=== PATIENT | male | born 1955 | race Caucasian/White ===

== ENCOUNTER 2017-04-10 20:24 | Observation (INO) ==
[2017-04-10] MEDS ORDERED: 0.9 % Sodium Chloride 1,000 ML IVC ONE (21:18)
[2017-04-10] MEDS ORDERED: levoFLOXacin 500 MG TABLET PO ONE (21:18)
[2017-04-10] MEDS ORDERED: methylPREDNISolone 125 MG/2 ML VIAL IVP ONE (21:18)
[2017-04-10] MEDS ORDERED: Ipratropium/Albuterol Neb 3 ML IH ONE (21:18)
[2017-04-10] MEDS ORDERED: Dexamethasone 4 MG/ML VIAL PO ONE (21:20)
[2017-04-10] MEDS: diazePAM 5 MG TABLET PO ONE ×2 (21:30)
[2017-04-10 21:36] LABS: Hemoglobin 14.6 g/dL (12.9-16.9); Red Cell Distribution Width 14.2 % (11.5-14.5)
[2017-04-10 21:37] LABS: Basophils % 0.2 %; Eosinophils % 0.5 %; Hematocrit 43.2 % (37.5-50.1); Immature Granulocytes % 0.3 % (0-4); Immature Platelets 4.5 % (1.1-6.1); Lymphocytes # 0.2 K/mcL (0.6-4.6); Lymphocytes % 3.5 %; Mean Corpuscular HGB Conc 33.8 g/dL (31.6-35.5); Mean Corpuscular Hemoglobin 32.8 pg (28.0-33.3); Mean Corpuscular Volume 97.1 fL (83.0-100.0); Monocytes # 0.8 K/mcL (0.0-1.3); Monocytes % 12.4 %; Neutrophils # 5.2 K/mcL (1.6-8.9); Red Blood Count 4.45 M/mcL (4.19-5.50); Segmented Neutrophils % 83.1 %
[2017-04-10 21:38] LABS: Platelet Count 92 K/mcL (140-400)
[2017-04-10 21:51] LABS: BUN/Creatinine Ratio 14 (6-26); Blood Urea Nitrogen 20 mg/dL (8-23); Calcium 9.1 mg/dL (8.6-10.3); Carbon Dioxide 21 mEq/L (23-29); Chloride 104 mEq/L (98-107); Glucose 145 mg/dL (70-105); Osmolality,Calculated 283 (280-300); Potassium 4.2 mEq/L (3.5-5.1); Sodium 134 mEq/L (136-145); eGFR For African Americans > 60 (> 60); eGFR For Non-African Americans 50 (> 60)
[2017-04-10 22:00] LABS: Bilirubin,Urine Negative (Negative); Blood,Urine Trace (Negative); Clarity,Urine Clear (Clear); Color,Urine Yellow (Yellow); Glucose,Urine (UA) Normal (Normal); Ketones,Urine Negative (Negative); Leukocyte Esterase,Urine Negative (Negative); Nitrite,Urine Negative (Negative); Protein,Urine 30 mg/dL (Neg-Trace); Specific Gravity,Urine 1.019 (1.010-1.025); Urobilinogen,Urine Normal (Normal)
[2017-04-10 22:03] LABS: Bacteria,Urine None Seen per hpf (None-Few); Hyaline Casts,Urine None Seen per lpf (None-Few); Squamous Epithelial Cell,Urine Moderate per lpf (None-Few); WBC,Urine 0-3 per hpf (0-3)
--- NOTE | 2017-04-10 22:47 | Emergency Department Note ---
Disposition Clinical Impression: Dizziness Disposition: Admitted As Inpatient Condition: Good Dizziness HPI - General Chief Complaint: ED Upper Respiratory Infection Stated Complaint: dizziness, congested, cough Time Seen by Provider: 04/10/17 21:14 Source: patient Limitations: no limitations Nursing Notes Reviewed: Yes Vital Signs Reviewed: Yes - History of Present Illness HPI Narrative: This is a 61-year-old male presents with concern for dizziness. His symptoms started earlier today. Subjective fever as well as cough. He admits that he is so dizzy he cannot get off the floor. Room was spinning. He has no ear pain or mastoid tenderness. He has no head trauma. He has no chest wall trauma or abdominal pain. He denies nausea, vomiting, diarrhea. General: No acute distress HEENT: Pupils equal and reactive to light, extraoccular muscle movement is normal, TMS are clear bilaterally. Heart: RRR, No murmor rub or gallop Lungs: lungs clear, no wheezing, rales or ronchi. ABD: SNT, no focal areas or tenderness, no guarding or rebound tenderness. Extremities: No cyanosis, clubbing or edema Neuro: CN 2-12 in tact, no focal deficit. strength 5/5. Medical decision-making Findings consistent with vertigo, flulike symptoms. The patient has ongoing tachycardia and mild hypoxia. X-ray shows no acute findings. Influenza swab was negative. CT scan of the brain shows prominence of the ophthalmic veins. I discussed this with the on-call test tube maker. No acute intervention at this time. We will check ocular pressures and proceed with admission for further management and possible need for intubation lumbar puncture to rule out increased intracranial pressure. Occular pressures 17 right, 19 left. - Related Data Home Medications Medication Instructions Recorded Confirmed RX: Cholecalciferol (Vitamin D3) 1,000 unit PO DAILY 10/15/14 04/11/17 [Vitamin D3] RX: Lisinopril [Zestril] 5 mg PO DAILY 10/15/14 04/11/17 RX: Omeprazole [PriLOSEC] 20 mg PO DAILY 10/15/14 04/11/17 RX: Verapamil ER (24 HR) [Calan SR] 180 mg PO DAILY 10/15/14 04/11/17 RX: Warfarin [Coumadin] 2.5 mg PO DAILY 10/15/14 04/11/17 RX: Trospium Chloride 20 mg PO DAILY 10/07/15 04/11/17 RX: Saw/Vit E/Sod Mana/Lyc/Beta/Pyg 1 each PO DAILY 02/04/17 04/11/17 [Prostate Health Caplet] RX: Terazosin [Hytrin] 2 mg PO HS 02/04/17 04/11/17 Previous Rx's Medication Instructions Recorded RX: Sulfacetamide Sodium 10% OPTH 2 drop BOTH EYES QID #5 bottle 02/24/17 [Bleph 10] GuaiFENesin/Dextromethorphan 5 ml PO Q4H PRN #1 liquid 04/11/17 [Robitussin Cough-Chest Dm Liq] Allergies Allergy/AdvReac Type Severity Reaction Status Date / Time Oxycodone Allergy Mild Itching Verified 02/24/17 13:12 All systems ED: reviewed and negative except as stated. Review of Systems: As Per HPI Past Medical History - Past Medical History Medical history: Reports: hypertension - Social History Smoking Status: Never smoker Smokeless Tobacco Status: No Alcohol use: Reports: none Drug use: Reports: none Physical Exam - General Limitations: no limitations General appearance: alert, in no apparent distress Course Vital Signs Temperature 99.4 F 04/10/17 20:27 Pulse Rate 120 04/10/17 20:27 Respiratory Rate 24 04/10/17 20:27 Blood Pressure 171/94 04/10/17 20:27 O2 Sat by Pulse Oximetry 98 04/10/17 20:27 Temperature 98.5 F 04/11/17 10:00 Pulse Rate 87 04/11/17 10:00 Respiratory Rate 16 04/11/17 11:20 Blood Pressure 148/86 04/11/17 10:00 O2 Sat by Pulse Oximetry 94 04/11/17 11:20 Oxygen Delivery Oxygen Delivery Room Air Dizziness - Lab Data Result diagrams: 04/11/17 03:23 04/11/17 03:23 Lab Results 04/10/17 04/10/17 04/10/17 Range/Units 21:27 21:27 21:27 WBC 6.3 (4.3-11.1) K/mcL RBC 4.45 (4.19-5.50) M/mcL Hgb 14.6 (12.9-16.9) g/dL Hct 43.2 (37.5-50.1) % MCV 97.1 (83.0-100.0) fL MCH 32.8 (28.0-33.3) pg MCHC 33.8 (31.6-35.5) g/dL RDW 14.2 (11.5-14.5) % Plt Count 92 L (140-400) K/mcL MPV 11.0 (9.4-12.4) fL Immature Gran % 0.3 (0-4) % Seg Neutrophils % 83.1 % Lymphocytes % 3.5 % Monocytes % 12.4 % Eosinophils % 0.5 % Basophils % 0.2 % Neutrophils # 5.2 (1.6-8.9) K/mcL Lymphocytes # 0.2 L (0.6-4.6) K/mcL Monocytes # 0.8 (0.0-1.3) K/mcL Eosinophils # 0.0 (0.0-0.6) K/mcL Basophils # 0.0 (0.0-0.2) K/mcL Immature Plt Fraction 4.5 (1.1-6.1) % Sodium 134 L (136-145) mEq/L Potassium 4.2 (3.5-5.1) mEq/L Chloride 104 (98-107) mEq/L Carbon Dioxide 21 L (23-29) mEq/L BUN 20 (8-23) mg/dL Creatinine 1.44 H (0.70-1.30) mg/dL Est GFR ( Amer) > 60 (> 60) Est GFR (Non-Af Amer) 50 L (> 60) BUN/Creatinine Ratio 14 (6-26) Glucose 145 H (70-105) mg/dL Calculated Osmolality 283 (280-300) Lactic Acid 2.1 (0.5-2.2) mmol/L Calcium 9.1 (8.6-10.3) mg/dL Urine Color (Yellow) Urine Clarity (Clear) Urine pH (5.0-8.0) pH Units Ur Specific [place] (1.010-1.025) Urine Protein (Neg-Trace) mg/dL Urine Glucose (UA) (Normal) mg/dL Urine Ketones (Negative) mg/dL Urine Blood (Negative) Urine Nitrite (Negative) Urine Bilirubin (Negative) Urine Urobilinogen (Normal) mg/dL Ur Leukocyte Esterase (Negative) Urine Microscopic RBC (0-3) per hpf Urine Microscopic WBC (0-3) per hpf Ur Squamous Epith Cells (None-Few) per lpf Urine Bacteria (None-Few) per hpf Hyaline Casts (None-Few) per lpf 04/10/17 Range/Units 21:50 WBC (4.3-11.1) K/mcL RBC (4.19-5.50) M/mcL Hgb (12.9-16.9) g/dL Hct (37.5-50.1) % MCV (83.0-100.0) fL MCH (28.0-33.3) pg MCHC (31.6-35.5) g/dL RDW (11.5-14.5) % Plt Count (140-400) K/mcL MPV (9.4-12.4) fL Immature Gran % (0-4) % Seg Neutrophils % % Lymphocytes % % Monocytes % % Eosinophils % % Basophils % % Neutrophils # (1.6-8.9) K/mcL Lymphocytes # (0.6-4.6) K/mcL Monocytes # (0.0-1.3) K/mcL Eosinophils # (0.0-0.6) K/mcL Basophils # (0.0-0.2) K/mcL Immature Plt Fraction (1.1-6.1) % Sodium (136-145) mEq/L Potassium (3.5-5.1) mEq/L Chloride (98-107) mEq/L Carbon Dioxide (23-29) mEq/L BUN (8-23) mg/dL Creatinine (0.70-1.30) mg/dL Est GFR ( Amer) (> 60) Est GFR (Non-Af Amer) (> 60) BUN/Creatinine Ratio (6-26) Glucose (70-105) mg/dL Calculated Osmolality (280-300) Lactic Acid (0.5-2.2) mmol/L Calcium (8.6-10.3) mg/dL Urine Color Yellow (Yellow) Urine Clarity Clear (Clear) Urine pH 6.0 (5.0-8.0) pH Units Ur Specific [place] 1.019 (1.010-1.025) Urine Protein 30 H (Neg-Trace) mg/dL Urine Glucose (UA) Normal (Normal) mg/dL Urine Ketones Negative (Negative) mg/dL Urine Blood Trace H (Negative) Urine Nitrite Negative (Negative) Urine Bilirubin Negative (Negative) Urine Urobilinogen Normal (Normal) mg/dL Ur Leukocyte Esterase Negative (Negative) Urine Microscopic RBC 3-5 H (0-3) per hpf Urine Microscopic WBC 0-3 (0-3) per hpf Ur Squamous Epith Cells Moderate H (None-Few) per lpf Urine Bacteria None Seen (None-Few) per hpf Hyaline Casts None Seen (None-Few) per lpf
[2017-04-10] MEDS ORDERED: Tetracaine 0.5% OPTH 80 DROP/4 ML BOTTLE LEFT EYE ONE (22:55)
[2017-04-10] MEDS ORDERED: 0.9 % Sodium Chloride 1,000 ML IVC SCH (23:45)
[2017-04-10] MEDS ORDERED: Naloxone 0.4 MG/ML INJ IVP PRN (23:45)
[2017-04-10] MEDS ORDERED: Ipratropium/Albuterol Neb 3 ML IH PRN (23:48)
--- NOTE | 2017-04-10 23:50 | Internal Med History&Physical ---
Date of Encounter: 04/11/17 Time of Encounter: 00:04 Assessment and Plan (1) URI (upper respiratory infection) Current visit: Yes Status: Acute check RVP panel Qualifiers: URI type: unspecified viral URI Qualified Code(s): J06.9 - Acute upper respiratory infection, unspecified (2) Acute bronchitis Current visit: Yes Status: Acute duonebs, mucinex, azithromycin IV, IV fluids Qualifiers: Bronchitis organism: unspecified organism Qualified Code(s): J20.9 - Acute bronchitis, unspecified (3) Dizziness Current visit: Yes Status: Acute orthostats in a.m tele PT/OT CT head findings could be incidental, observe 24-48 hours and further management pending hospital course (4) HTN (hypertension), benign Current visit: Yes Status: Acute continue bP med (5) DVT (deep venous thrombosis) Current visit: No Status: Chronic continue coumadin, trend INR, pharmacy to assist with dosing Qualifiers: DVT location: lower extremity Laterality: right Qualified Code(s): I82.401 - Acute embolism and thrombosis of unspecified deep veins of right lower extremity (6) Non-Hodgkin lymphoma Current visit: No Status: Chronic Qualifiers: Qualified Code(s): C85.90 - Non-Hodgkin lymphoma, unspecified, unspecified site Internal Medicine - H&P: HPI Chief complaint: Dizziness, flu like symptoms History of present illness: Mr. Donaldson is a 61 year old male with hx of HTN, RLE DVT on coumadin who presents with 2 days hx of flu like symptoms and dizziness. Reports 2 days hx of dizziness, dysequilibrium symptoms, felt like falling associated with URI symptoms of headache, feverish, Muscle ach, sore throat, congestion of chest, nose. Denies smoking. No improving over the last 2 days which prompted visit to the ED EKG not completed in the ED, Tele monitor suggest sinus tachy, d/w ED to perform one CT/CT head/brain wo con IMPRESSION: No acute intracranial abnormality. Nonspecific prominence of the bilateral superior ophthalmic veins, may be related to ophthalmic vein varix, Graves disease or increased intracranial pressure. XR/XR chest 1V portable IMPRESSION: No acute cardiopulmonary disease. Low lung volumes. Scattered calcified granulomas, stable. Past Med Surg Social Fam HX - Past Medical History Medical history: hypertension - Past Surgical History Surgical History: non-contributory - Social History Smoking Status: Never smoker Smokeless Tobacco Status: No Alcohol use: none Drug use: none - Additional Family History Additional family history: htn Internal Medicine - H&P: Meds Cholecalciferol (Vitamin D3) [Vitamin D] 1,000 unit PO DAILY 10/15/14 [History] Lisinopril [Zestril] 5 mg PO DAILY 10/15/14 [History] Omeprazole [PriLOSEC] 20 mg PO DAILY 10/15/14 [History] Verapamil ER (24 HR) [Calan SR] 180 mg PO DAILY 10/15/14 [History] Warfarin [Coumadin] 2.5 mg PO DAILY 10/15/14 [History] Trospium Chloride 20 mg PO DAILY 10/07/15 [History] Saw/Vit E/Sod Mana/Lyc/Beta/Pyg [Prostate Health Caplet] 1 each PO DAILY [History] Terazosin [Hytrin] 2 mg PO HS 02/04/17 [History] Sulfacetamide Sodium 10% OPTH [Bleph 10] 2 drop BOTH EYES QID #5 bottle [Rx] 3 Allergy/AdvReac Type Severity Reaction Status Date / Time Oxycodone Allergy Mild Itching Verified 02/24/17 13:12 All Systems PM: A 10-system review of systems was performed and is negative for pertinent findings except as documented above in the HPI. Review of systems: ROS 14 point review of systems reviewed as best as possible given presentation. Pertinent positive or negative as per HPI or otherwise reviewed as negative - Constitutional Vitals: Temp Pulse Resp BP Pulse Ox 99.4 F 120 16 120/78 92 04/10/17 20:27 04/10/17 23:02 04/10/17 23:20 04/10/17 23:20 04/10/17 23:02 Exam: General - AAO x 3 Psych - Appropriate affect/speech. No agitation Eyes - CHELE. Eye lids intact. No scleral icterus Neuro - No gross peripheral or central neuro deficits on inspection but noted some dizziness subjectively Heart - Sinus tachycardia. RRR. S1 and S2 present. No added HS/murmurs appreciated. No elevated JVD appreciated. Lung - Adequate air entry b/l, Scant crackles. No wheeze GI - Soft, non-tender. No hepatosplenomegaly/ascites. BS+ - No CVA/suprapubic tenderness or palpable bladder distension Skin - Intact. No rash/petechiae/ecchymosis. Warm extremities Internal Med - H&P Results - Labs CBC & Chem 7: 04/10/17 21:27 04/10/17 21:27
[2017-04-11 04:27] LABS: Immature Granulocytes % 0.4 % (0-4)
[2017-04-11 04:28] LABS: Hematocrit 42.1 % (37.5-50.1); Hemoglobin 14.2 g/dL (12.9-16.9); Immature Platelets 4.3 % (1.1-6.1); Lymphocytes # 0.3 K/mcL (0.6-4.6); Lymphocytes % 6.6 %; Mean Corpuscular HGB Conc 33.7 g/dL (31.6-35.5); Mean Corpuscular Hemoglobin 33.1 pg (28.0-33.3); Mean Corpuscular Volume 98.1 fL (83.0-100.0); Mean Platelet Volume 11.3 fL (9.4-12.4); Monocytes # 0.2 K/mcL (0.0-1.3); Monocytes % 4.7 %; Neutrophils # 4.6 K/mcL (1.6-8.9); Nucleated Red Blood Cells 0.4 /100 WBC (0); Red Blood Count 4.29 M/mcL (4.19-5.50); Red Cell Distribution Width 14.4 % (11.5-14.5); Segmented Neutrophils % 88.3 %
[2017-04-11 04:31] LABS: INR 2.8; Prothrombin Time 31.3 Seconds (9.4-12.1)
[2017-04-11 04:41] LABS: Platelet Count 91 K/mcL (140-400)
[2017-04-11 05:11] LABS: Calcium 8.9 mg/dL (8.6-10.3); Potassium 4.4 mEq/L (3.5-5.1)
[2017-04-11] MEDS ORDERED: Cholecalciferol (D-3) 1,000 UNIT TABLET PO SCH (09:00)
[2017-04-11] MEDS ORDERED: Azithromycin 500 MG in D5% in Water 250 ML IVPB SCH (09:00)
[2017-04-11] MEDS ORDERED: GuaiFENesin/Dextromethorphan TABLET PO SCH (09:00)
[2017-04-11] MEDS ORDERED: Ipratropium/Albuterol Neb 3 ML IH SCH ×2 (09:00→11:00)
[2017-04-11] MEDS ORDERED: Verapamil ER (24 HR) 180 MG TABLET.ER PO SCH (09:00)
[2017-04-11] MEDS: Sulfacetamide Sodium 10% OPTH 15 ML BOTTLE BOTH EYES SCH ×2 (09:15→12:37)
[2017-04-11 12:39] VITALS: BP 148/86
--- NOTE | 2017-04-11 13:45 | Discharge Summary ---
Date of Encounter: 04/11/17 Time of Encounter: 13:43 - Discharge Diagnosis (1) Acute bronchitis Priority: Primary Status: Acute Qualifiers: Bronchitis organism: unspecified organism Qualified Code(s): J20.9 - Acute bronchitis, unspecified (2) CKD (chronic kidney disease) Priority: Secondary Status: Chronic Qualifiers: Chronic kidney disease stage: stage 3 (moderate) Qualified Code(s): N18.3 - Chronic kidney disease, stage 3 (moderate) (3) HTN (hypertension), benign Priority: Secondary Status: Chronic (4) DVT (deep venous thrombosis) Priority: Secondary Status: Chronic Qualifiers: DVT location: lower extremity Chronicity: chronic Laterality: right Qualified Code(s): I82.501 - Chronic embolism and thrombosis of unspecified deep veins of right lower extremity (5) Non-Hodgkin lymphoma Priority: Secondary Status: Chronic Qualifiers: Non-Hodgkin lymphoma type: B-cell B-cell lymphoma type: diffuse large B- cell Lymphoma site: unspecified region Qualified Code(s): C83.30 - Diffuse large B-cell lymphoma, unspecified site - Discharge Medications Prescriptions: GuaiFENesin/Dextromethorphan [Robitussin Cough-Chest Dm Liq] 5 ml PO Q4H PRN #1 liquid PRN Reason: Cough Home Medications: Cholecalciferol (Vitamin D3) [Vitamin D3] 1,000 unit PO DAILY 10/15/14 [History] Lisinopril [Zestril] 5 mg PO DAILY 10/15/14 [History] Omeprazole [PriLOSEC] 20 mg PO DAILY 10/15/14 [History] Verapamil ER (24 HR) [Calan SR] 180 mg PO DAILY 10/15/14 [History] Warfarin [Coumadin] 2.5 mg PO DAILY 10/15/14 [History] Trospium Chloride 20 mg PO DAILY 10/07/15 [History] Saw/Vit E/Sod Mana/Lyc/Beta/Pyg [Prostate Health Caplet] 1 each PO DAILY [History] Terazosin [Hytrin] 2 mg PO HS 02/04/17 [History] Sulfacetamide Sodium 10% OPTH [Bleph 10] 2 drop BOTH EYES QID #5 bottle [Rx] GuaiFENesin/Dextromethorphan [Robitussin Cough-Chest Dm Liq] 5 ml PO Q4H PRN #1 liquid 04/11/17 [Rx] Allergies/Adverse Reactions: 3 Allergy/AdvReac Type Severity Reaction Status Date / Time Oxycodone Allergy Mild Itching Verified 02/24/17 13:12 Procedures/tests Complete & Pending: Procedures Performed prior 72 hours Category Date Time Status EKG [ECG 12 lead ECG] [ECG] Stat Y 04/10/17 23:09 Ordered Date of admission: 04/10/17 23:01 Primary care physician: Kaitlin Andujar CNP Consults: 04/10/17 23:46 Consult to Occupational Therapy [CONS] Routine Comment: Evaluate, develop and implement POC Reason for Consult: ambulate and assess Consult to Physical Therapy [CONS] Routine Comment: Evaluate, develop and implement POC Reason for Consult: ambulate assess for placement need Discharging clinician: Clotilde Lawson Anticipated date of discharge: 04/11/17 - Patient Status Disposition: Home, Self-Care Condition: Good Functional capacity at discharge: independent ambulation Overall status at discharge: patient is progressing back to baseline - Discharge Instructions Follow Up With: Kaitlin Andujar CNP [Primary Care Provider] - Additional Instructions: F/up with PCP in 1-2 weeks - Diet and Activity Activity: resume usual activities as tolerated Diet: low fat, low cholesterol, low salt diet, other (renal diet) Hospital course: Mr. Donaldson is a 61 year old male with the above medical problems, who presented to the emergency room with flu-like symptoms with generalized weakness , dizziness, cough. Initial evaluation including basic labs, CT head, chest x- ray revealed no acute abnormality. EKG showed no acute ischemic changes, lactic acid was normal. Patient received IV hydration, supportive care with antitussives and expectorant. He likely has viral syndrome with acute viral bronchitis. Respiratory viral panel has been pending since admission. Patient significantly improved today and he was very anxious to be discharged. vital signs revealed no orthostatic hypotension. Patient is medically stable for discharge with outpatient follow-up. Plan of care explained to the patient and his family at bedside, verbalized understanding. - Time Spent with Patient Total time spent providing and/or coordinating discharge services: Greater than 30 minutes (40 min) - Constitutional Vitals: Temp Pulse Resp BP Pulse Ox 98.5 F 87 16 148/86 94 04/11/17 10:00 04/11/17 10:00 04/11/17 11:20 04/11/17 10:00 04/11/17 11:20 General appearance: Present: A&O X 3, answers questions appropriately - Cardiovascular Cardiovascular exam: Present: RRR, +S1, +S2. Absent: diastolic murmur, gallop, rubs, systolic murmur
[2017-04-11] MEDS ORDERED: Warfarin perPT PO PRN (18:00)
[2017-04-11] MEDS ORDERED: *HR* Warfarin 5 MG TABLET PO SCH (18:00)
[2017-04-11] MEDS ORDERED: *HR* Warfarin 2.5 MG TABLET PO ONE (18:00)
--- NOTE | 2017-04-12 17:02 | Electrocardiograph Report ---
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
== END 2017-04-11 14:24 | disposition home or self-care (01) ==
LOC: EMEROO 20:24 → 3NENU 20:24 → SUATTDRO 23:01 → 3NENU 23:30
PROVIDERS: ADMIT Internal Medicine Hematology & Oncology; ATTEND Internal Medicine